=== PATIENT | female | born 1940 | race Caucasian/White ===

== ENCOUNTER 2016-10-27 07:14 | Day surgery (SDC) | payer MEDICARE, BC ==
[~2016-10-27 07:14] MED LIST: LIDOCAINE HCL 1% MPF SOL ONE; PROPOFOL 500 MG/50 ML EMU IV ONE
[2016-10-27 09:28] VITALS: TEMP 97.2
[2016-10-27 10:00] VITALS: PULSE 51; RESP 20
[2016-10-27 10:18] VITALS: BP 135/77; O2SAT 96
== END 2016-10-27 10:18 | disposition home or self-care (01) | DRG 951 ==
LOC: SURG 07:14
PROVIDERS: ATTEND Internal Medicine Gastroenterology
DX: Z12.11 Encounter for screening for malignant neoplasm of colon (principal); K92.1 Melena; Q39.8 Other congenital malformations of esophagus; Z86.010 Personal history of colon polyps; K59.00 Constipation, unspecified; K21.9 Gastro-esophageal reflux disease without esophagitis; K44.9 Diaphragmatic hernia without obstruction or gangrene; K31.7 Polyp of stomach and duodenum; D12.2 Benign neoplasm of ascending colon; K64.4 Residual hemorrhoidal skin tags
CPT/HCPCS: 36415; J2001; J2704

== ENCOUNTER 2017-06-25 08:06 | Outpatient (CLI) | payer MEDICARE, BC ==
[2016-10-27 10:18] VITALS: O2SAT 96
== END 2017-06-25 08:07 | disposition home or self-care (01) | DRG 558 ==
LOC: CONVCARE 08:06
PROVIDERS: ATTEND Orthopaedic Surgery
DX: M75.41 Impingement syndrome of right shoulder (principal)
CPT/HCPCS: 73030; 73221

== ENCOUNTER 2017-07-15 08:06 | Outpatient (CLI) | payer MEDICARE, BC ==
[2016-10-27 10:18] VITALS: O2SAT 96
== END 2017-07-15 08:07 | disposition home or self-care (01) | DRG 950 ==
LOC: CONVCARE 08:06
PROVIDERS: ATTEND Orthopaedic Surgery
DX: S46.011D Strain of muscle(s) and tendon(s) of the rotator cuff of right shoulder, subsequent encounter (principal); M19.011 Primary osteoarthritis, right shoulder; M54.2 Cervicalgia
CPT/HCPCS: 72040